=== PATIENT | female | born 1955 | race African-American/Black ===

== ENCOUNTER 2020-08-12 07:33 | Emergency (ER) | payer SELFPAY ==
[2020-08-12] MEDS ORDERED: fentaNYL 100 MCG/2 ML INJ IV ONE (08:30)
[2020-08-12] MEDS ORDERED: FAMOTIDINE 20 MG/2 ML INJ IV ONE (08:30)
[2020-08-12] MEDS ORDERED: ONDANSETRON 4 MG/2 ML INJ IV ONE (08:30)
[2020-08-12] MEDS ORDERED: SODIUM CHLORIDE 0.9% 1000 ML 1,000 ML IV ONE (08:30)
--- NOTE | 2020-08-12 08:37 | Emergency Department Report ---
HPI - General Chief Complaint: Abdominal Pain Time Seen by Provider: 08/12/20 08:12 - HPI HPI: Room 3 The patient is a 64-year-old female present with a chief complaint of abdominal pain. Patient states for 1 week she has had pain in the midepigastric region. Patient states the pain worsened last night. At midnight the patient began vomiting nonbloody, nonbilious emesis. Patient denies diarrhea or fever. Patient denies contact with known Covid positive patients. Patient currently gives her pain a score of 10/10 ED Past Medical Hx - Past Medical History Previous Medical History?: Yes Hx Hypertension: Yes Additional medical history: ulcer - Surgical History Past Surgical History?: No - Family History Family history: no significant - Social History Smoking Status: Never Smoker Substance Use Type: None (Denies illicit drug use), Alcohol (Occasional) - Medications Home Medications: Home Medications Medication Instructions Recorded Confirmed Last Taken Type HYDROcodone/APAP 5-325 [Belpre 1 - 2 each PO Q6HR PRN #14 tablet 08/12/20 Unknown Rx 5/325] Levothyroxine [Synthroid] 50 mcg PO QAM 08/12/20 08/12/20 1 Day Ago History ~08/11/20 Lovastatin [Altoprev] 20 mg PO DAILY 08/12/20 08/12/20 1 Day Ago History ~08/11/20 Meloxicam [Mobic] 7.5 mg PO QDAY 08/12/20 08/12/20 1 Day Ago History ~08/11/20 Ondansetron [Zofran ODT TAB] 8 mg PO Q8HR #20 tab.rapdis 08/12/20 Unknown Rx Pantoprazole [Protonix] 40 mg PO BID #60 tablet 08/12/20 Unknown Rx Promethazine [Phenergan] 25 mg NV Q6HR PRN #5 supp.rect 08/12/20 Unknown Rx raNITIdine HCl [Zantac] 150 mg PO BID 08/12/20 08/12/20 1 Day Ago History ~08/11/20 ED Review of Systems ROS: Stated complaint: ABD PAIN Other details as noted in HPI Constitutional: denies: fever Eyes: denies: eye pain ENT: denies: throat pain Respiratory: denies: no symptoms reported Cardiovascular: denies: chest pain Endocrine: no symptoms reported Gastrointestinal: abdominal pain, nausea, vomiting. denies: diarrhea, hematemesis Genitourinary: denies: dysuria Musculoskeletal: denies: back pain Neurological: denies: headache Physical Exam - Physical Exam Physical Exam: GENERAL: The patient is well-developed well-nourished []. [] HEENT: Normocephalic. Atraumatic. Extraocular motions are intact. Patient has moist mucous membranes. NECK: Supple. Trachea midline CHEST/LUNGS: Clear to auscultation. There is no respiratory distress noted. HEART/CARDIOVASCULAR: Regular. There is no tachycardia. There is no gallop rub or murmur. ABDOMEN: Abdomen is soft, with diffuse tenderness to palpation. There is no guarding or rebound. Patient has normal bowel sounds. There is no abdominal di stention. SKIN: There is no rash. There is no edema. There is no diaphoresis. NEURO: The patient is awake, alert, and oriented. The patient is cooperative. The patient has normal speech MUSCULOSKELETAL: There is no evidence of acute injury. ED Course - Reevaluation(s) Reevaluation #1: 08/12/20 10:55 Patient improved after medication. Study results discussed with family ED Medical Decision Making - Lab Data Result diagrams: 08/12/20 08:38 08/12/20 08:38 Laboratory Tests 08/12/20 08/12/20 08:38 08:38 WBC 9.2 RBC 4.83 Hgb 12.3 Hct 38.0 MCV 79 MCH 26 L MCHC 33 RDW 14.7 Plt Count 242 Add Manual Diff Complete Total Counted 100 Seg Neutrophils % Vocational Rehab Consultant Seg Neuts % (Manual) 95.0 H Band Neutrophils % 2.0 Lymphocytes % (Manual) 2.0 L Reactive Lymphs % (Man) 0 Monocytes % (Manual) 1.0 Eosinophils % (Manual) 0 Basophils % (Manual) 0 Metamyelocytes % 0 Myelocytes % 0 Promyelocytes % 0 Blast Cells % 0 Nucleated RBC % Not Reportable Seg Neutrophils # Man 8.7 H Band Neutrophils # 0.2 Lymphocytes # (Manual) 0.2 L Abs React Lymphs (Man) 0.0 Monocytes # (Manual) 0.1 Eosinophils # (Manual) 0.0 Basophils # (Manual) 0.0 Metamyelocytes # 0.0 Myelocytes # 0.0 Promyelocytes # 0.0 Blast Cells # 0.0 WBC Morphology Not Reportable Hypersegmented Neuts Not Reportable Hyposegmented Neuts Not Reportable Hypogranular Neuts Not Reportable Smudge Cells Not Reportable Toxic Granulation Not Reportable Toxic Vacuolation Not Reportable Dohle Bodies Not Reportable Pelger-Huet Anomaly Not Reportable Qian Rods Not Reportable Platelet Estimate Consistent w auto Clumped Platelets Not Reportable Plt Clumps, EDTA Not Reportable Large Platelets Not Reportable Giant Platelets Not Reportable Platelet Satelliting Not Reportable Plt Morphology Comment Not Reportable RBC Morphology Not Reportable Dimorphic RBCs Not Reportable Polychromasia Not Reportable Hypochromasia 1+ Poikilocytosis Not Reportable Anisocytosis Not Reportable Microcytosis Not Reportable Macrocytosis Not Reportable Spherocytes Not Reportable Pappenheimer Bodies Not Reportable Sickle Cells Not Reportable Target Cells Not Reportable Tear Drop Cells Not Reportable Ovalocytes Not Reportable Helmet Cells Not Reportable [place] Bodies Not Reportable [place] Rings Not Reportable [place] Cells Not Reportable Bite Cells Not Reportable Crenated Cell Not Reportable Elliptocytes Not Reportable Acanthocytes (Spur) Not Reportable Rouleaux Not Reportable Hemoglobin C Crystals Not Reportable Schistocytes Not Reportable Malaria parasites Not Reportable [place] Bodies Not Reportable Hem Pathologist Commnt No Sodium 141 Potassium 3.6 Chloride 101.9 Carbon Dioxide 28 Anion Gap 15 BUN 12 Creatinine 0.6 Estimated GFR > 60 BUN/Creatinine Ratio 20 Glucose 160 H Calcium 9.5 Total Bilirubin 0.60 AST 179 H ALT 113 H Alkaline Phosphatase 84 Total Creatine Kinase 107 CK-MB (CK-2) 1.1 CK-MB (CK-2) Rel Index 1.0 Troponin T < 0.010 Total Protein 7.7 Albumin 4.3 Albumin/Globulin Ratio 1.3 Lipase 19 - Radiology Data Radiology results: report reviewed (CT abdomen pelvis), image reviewed (CT abdomen pelvis) [facility] [address] [place] [address] Cat Scan Report Signed Patient: CHERELLE VZA MR#: [id number] : 1955 Acct:[id number] Age/Sex: 64 / F ADM Date: 08/12/20 Loc: ED Attending Dr: Ordering Physician: SAGE REVELES MD Date of Service: 08/12/20 Procedure(s): CT abdomen pelvis w con Accession Number(s): [id number] cc: SAGE REVELES MD CT ABDOMEN AND PELVIS WITH CONTRAST INDICATION / CLINICAL INFORMATION: Diffuse abd pain greatest in the midepigastric. TECHNIQUE: Axial CT images were obtained through the abdomen and pelvis after 100 cc Omnipaque 300 mg percent IV contrast. All CT scans at this location are performed using CT dose reduction for ALARA by means of automated exposure control. COMPARISON: None available. FINDINGS: LOWER CHEST: No significant abnormality. LIVER: No significant abnormality. GALLBLADDER: No significant abnormality. BILE DUCTS: No significant abnormality. PANCREAS: No significant abnormality. SPLEEN: No significant abnormality. ADRENALS: No significant abnormality. RIGHT KIDNEY and URETER: No significant abnormality. LEFT KIDNEY and URETER: No significant abnormality. STOMACH and SMALL BOWEL: No significant abnormality. COLON: No significant abnormality. APPENDIX: No significant abnormality. PERITONEUM: No free fluid. No free air. No fluid collection. LYMPH NODES: No significant adenopathy. AORTA and ARTERIES: No significant abnormality. IVC and VEINS: No significant abnormality. URINARY BLADDER: No significant abnormality. REPRODUCTIVE ORGANS: No significant abnormality. ADDITIONAL FINDINGS: None. SKELETAL SYSTEM: Slight wedging L1 vertebral body IMPRESSION: 1. No significant abnormality. Signer Name: Ney Song MD Signed: 08/12/2020 10:30 AM Workstation Name: [id number] Transcribed By: WG Dictated By: Ney Song MD Electronically Authenticated By: Ney Song MD Signed Date/Time: 08/12/20 1030 DD/ 1027 TD/TT: - Differential Diagnosis Peptic ulcer disease, gastritis, gastroenteritis, partial small bowel obstr Critical care attestation.: If time is entered above; I have spent that time in minutes in the direct care of this critically ill patient, excluding procedure time. ED Disposition Clinical Impression: Acute abdominal pain Disposition: DC-01 TO HOME OR SELFCARE Is pt being admited?: No Does the pt Need Aspirin: No Condition: Stable Instructions: Abdominal Pain (ED) Additional Instructions: Return to the emergency department should you develop worsening symptoms, inability to tolerate food or liquids, high fever or any other concerns Prescriptions: HYDROcodone/APAP 5-325 [[place] 5/325] 1 - 2 each PO Q6HR PRN #14 tablet PRN Reason: Pain Promethazine [Phenergan] 25 mg NV Q6HR PRN #5 supp.rect PRN Reason: Vomiting Pantoprazole [Protonix] 40 mg PO BID #60 tablet Ondansetron [Zofran ODT TAB] 8 mg PO Q8HR #20 tab.rapdis Referrals: ANIL GUERRERO MD [Staff Physician] - [facility] (Dr. Guerrero is a orthopedic shoes salesperson. Please follow-up with him for further evaluation) [facility] [Provider Group] - 3-5 Days
[2020-08-12 08:55] LABS: Hemoglobin 12.3 gm/dl (10.1-14.3); Mean Corpuscular HGB Conc 33 % (30-34); Mean Corpuscular Volume 79 fl (79-97); Platelet Count 242 K/mm3 (140-440); Red Blood Count 4.83 M/mm3 (3.65-5.03); Red Cell Distribution Width 14.7 % (13.2-15.2)
[2020-08-12 09:17] LABS: Creatine Kinase MB 1.1 ng/mL (0.0-4.0)
[2020-08-12 09:19] LABS: Alanine Aminotransferase 113 units/L (7-56); Albumin 4.3 g/dL (3.9-5); Blood Urea Nitrogen 12 mg/dL (7-17); Calcium 9.5 mg/dL (8.4-10.2); Hemolysis Index 4
[2020-08-12 09:20] LABS: BUN/Creatinine Ratio 20
[2020-08-12 09:52] LABS: Band Neutrophils # (Manual) 0.2 K/mm3; Basophils % (Manual) 0 % (0.0-1.8); Eosinophils % (Manual) 0 % (0.0-4.3); Hypochromasia 1+; Platelet Estimate Consistent w Auto; Total Cells Counted 100
--- NOTE | 2020-08-12 10:35 | Cat Scan Report ---
CT ABDOMEN AND PELVIS WITH CONTRAST INDICATION / CLINICAL INFORMATION: Diffuse abd pain greatest in the midepigastric. TECHNIQUE: Axial CT images were obtained through the abdomen and pelvis after 100 cc Omnipaque 300 mg percent IV contrast. All CT scans at this location are performed using CT dose reduction for ALARA by means of automated exposure control. COMPARISON: None available. FINDINGS: LOWER CHEST: No significant abnormality. LIVER: No significant abnormality. GALLBLADDER: No significant abnormality. BILE DUCTS: No significant abnormality. PANCREAS: No significant abnormality. SPLEEN: No significant abnormality. ADRENALS: No significant abnormality. RIGHT KIDNEY and URETER: No significant abnormality. LEFT KIDNEY and URETER: No significant abnormality. STOMACH and SMALL BOWEL: No significant abnormality. COLON: No significant abnormality. APPENDIX: No significant abnormality. PERITONEUM: No free fluid. No free air. No fluid collection. LYMPH NODES: No significant adenopathy. AORTA and ARTERIES: No significant abnormality. IVC and VEINS: No significant abnormality. URINARY BLADDER: No significant abnormality. REPRODUCTIVE ORGANS: No significant abnormality. ADDITIONAL FINDINGS: None. SKELETAL SYSTEM: Slight wedging L1 vertebral body IMPRESSION: 1. No significant abnormality. Signer Name: Ney Song MD Signed: 08/12/2020 10:30 AM Workstation Name: [id number]
[2020-08-12] MEDS ORDERED: ALUM-MAG HYDROXIDE-SIMETHICONE 200-200-20MG/5ML ORAL LIQD 30 ML PO ONE (10:42)
[2020-08-12] MEDS ORDERED: LIDOCAINE VISCOUS 2% 15 ML ORAL LIQD PO ONE (10:42)
[2020-08-12 10:56] LABS: Amorphous Crystals,Urine 1+; Bacteria,Urine 1+ /HPF (Negative); Bilirubin,Urine NEG (Negative); Blood,Urine NEG (Negative); Color,Urine Yellow (Yellow); Mucus,Urine FEW /HPF; Protein,Urine <15 mg/dL mg/dL (Negative); Urobilinogen,Urine < 2.0 mg/dL (<2.0)
[2020-08-12 11:04] LABS: RBC,Urine < 1.0 /HPF (0.0-6.0)
[2020-08-12 11:22] VITALS: BP 126/69
== END 2020-08-12 11:22 | disposition home or self-care (01) ==
LOC: ED 07:33
DX: R10.13 Epigastric pain (principal); R11.10 Vomiting, unspecified
CPT/HCPCS: 36415; 74177; 80053; 81001; 82550; 82553; 83690; 84484; 85007; 85025; 87086; 96361; 96374; 96375; 99284; J2405; J3010; J7030; Q9967